=== PATIENT | female | born 2000 | race Caucasian/White ===

== ENCOUNTER 2024-08-29 12:37 | Outpatient (CLI) | payer OTHER, SELFPAY ==
--- NOTE | ~2024-08-29 | US_ITS ---
US breast RT complete INDICATION: Palpable right breast lump with axillary enlargement TECHNIQUE: Dedicated complete right breast ultrasound including all 4 quadrants in the subareolar loc ation COMPARISON: No prior studies for comparison. FINDINGS: The right breast/axilla is/are composed of normal heterogeneous echotexture without focal s olid or cystic mass. IMPRESSION: 1: Normal right breast ultrasound. BI-RADS CATEGORY 1 - NEGATIVE Reviewed, dictated and finalized at location A. [employer]
== END 2024-08-29 12:38 | disposition home or self-care (01) ==
PROVIDERS: PCP Nurse Practitioner; Visit Provider Nurse Practitioner
DX: R59.0 Localized enlarged lymph nodes (principal); N63.10 Unspecified lump in the right breast, unspecified quadrant
CPT/HCPCS: 76641